=== PATIENT | male | born 1980 | race Caucasian/White ===

== ENCOUNTER 2016-09-03 20:07 | Observation (INO) | payer OTHER ==
[~2016-09-03] VITALS: Ht 182.9 cm; Wt 89.0 kg
[~2016-09-03 20:07] MED LIST: NALOXONE HCL 0.4 MG/1 ML VIAL/CARP IV PRN; SODIUM CHLORIDE 0.9% 1000ML 1,000 ML IV SCH
[2016-09-03 20:29] VITALS: BP 129/90; PULSE 83; TEMP 36.9; O2SAT 98; Ht 182.9 cm; Wt 89.0 kg
[2016-09-03] MEDS ORDERED: DEXAMETHASONE INJ 8 MG in SYRINGE 0 ML IV SCH (21:15)
[2016-09-03] MEDS ORDERED: IV FLUIDS COMPLETED PRN (21:15)
[2016-09-03 21:23] LABS: HEMATOCRIT 46.5 % (42-52); MEAN CELL VOLUME 84.9 fL (80-100); MEAN CORPUSCULAR HEMOGLOBIN 29.4 pg (25-34); MEAN CORPUSCULAR HGB CONC 34.6 g/dl (32-36); MEAN PLATELET VOLUME 10.3 fL (7.4-10.4); PLATELET COUNT 272 K/uL (130-400); RED BLOOD COUNT 5.48 M/uL (4.7-6.1); WHITE BLOOD COUNT 12.37 K/uL (4.8-10.8)
--- NOTE | 2016-09-03 21:23 | DIAGNOSTIC IMAGING REPORT ---
CHEST 2 VIEWS ROUTINE CLINICAL HISTORY: Preoperative chest COMPARISON STUDY: No previous studies for comparison. FINDINGS: The cardiac and mediastinal contours are normal. There is no evidence of focal pulmonary consolidation. There is no evidence of failure. No pleural effusions are visualized.[ IMPRESSION: No active disease in the chest. Electronically signed by: Genaro Farrell M.D. 09/03/2016 9:21 PM Dictated Date/Time: 09/03/2016 9:21 PM
[2016-09-03] MEDS: LACTATED RINGER'S 1000ML 1,000 ML IV SCH (21:39)
[2016-09-03 21:43] LABS: BUN/CREATININE RATIO 20.3 (10-20); CREATININE 1.1 mg/dl (0.60-1.40); POTASSIUM 3.6 mmol/L (3.5-5.1)
[2016-09-03 21:48] LABS: URINE APPEARANCE CLEAR (CLEAR); URINE BILIRUBIN NEG (NEG); URINE COLOR YELLOW; URINE NITRITE NEG (NEG); URINE SPECIFIC GRAVITY 1.025 (1.000-1.030); UROBILINOGEN NEG (NEG)
[2016-09-03 21:54] LABS: CALCIUM 8.8 mg/dl (8.5-10.1)
[2016-09-03 21:56] LABS: MANUAL MICROSCOPIC REQUIRED? NO; REVIEW REQ? NO
[2016-09-03] MEDS: MORPHINE SULFATE 1 MG/ML 50 ML PCA SYR IV PRN ×2 (22:02→22:55)
[2016-09-03 22:10] VITALS: BP 141/85; PULSE 70; TEMP 37.2; O2SAT 98
[2016-09-03] MEDS: PREGABALIN 75 MG CAP PO SCH (22:18)
[2016-09-03] MEDS ORDERED: GABA-112 PO (22:46)
[2016-09-03] MEDS ORDERED: OXYC-57 PO (22:47)
[2016-09-03 23:00] VITALS: BP 113/67; PULSE 67; TEMP 37.3; O2SAT 98
[2016-09-04] VITALS (9 sets, daily range): BP systolic 112–154; BP diastolic 66–85; PULSE 62–89; TEMP 36.4–37.2; O2SAT 97–100
[2016-09-04] MEDS ORDERED: CEFAZOLIN 2000 MG/60 ML D5W IV SCH (06:00)
[2016-09-04] MEDS ORDERED: PREGABALIN 75 MG CAP PO SCH (06:00)
[2016-09-04] MEDS ORDERED: LACTATED RINGER'S 1000ML 1,000 ML IV SCH (06:00)
[2016-09-04] MEDS ORDERED: DEXAMETHASONE INJ 8 MG in SYRINGE 0 ML IV SCH (06:00)
[2016-09-04] MEDS: MORPHINE SULFATE 1 MG/ML 50 ML PCA SYR IV PRN (07:03)
[2016-09-04] MEDS: LACTATED RINGER'S 1000ML 1,000 ML IV SCH (09:05)
[2016-09-04] MEDS: PREGABALIN 75 MG CAP PO SCH (09:07)
[2016-09-04] MEDS ORDERED: EpHEDrine SULFATE INJ 50 MG/ML AMP IV PRN (11:30)
[2016-09-04] MEDS ORDERED: ATROPINE SULFATE 0.1 MG/ML 5ML SYR IV PRN (11:30)
[2016-09-04] MEDS ORDERED: HYDROmorphone INJ 1 MG/ML SYR IV PRN (11:30)
[2016-09-04] MEDS ORDERED: ONDANSETRON INJ 2 MG/ML 2 ML VIAL IV PRN ×2 (11:30→14:00)
[2016-09-04] MEDS ORDERED: MIDAZOLAM HCL 1 MG/ML 2ML VIAL ONE (12:32)
[2016-09-04] MEDS ORDERED: FENTANYL CITRATE INJ 50 MCG/1 ML 2 ML VIAL ONE ×2 (12:32→13:37)
--- NOTE | 2016-09-04 12:45 | History and Physical ---
History & Physical Date Sep 04, 2016. Chief Complaint LBP and R LE pain History of Present Illness The patient is a 36 year old male with complaints of a severe RLE radiculopathy that radiates to the anterior thigh. He reports dysesthesias with associated paresthesias. He denies weakness. Symptoms began approximately 3 weeks ago and have worsened to the point that he had limited ambulation due to pain. 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 Oral steroids and pain medication provided inadequate relief so he was admitted for IV pain medication and surgery. He denies LLE pain or incontinence. His MRI as an outpatient demonstrated a large foraminal and far lateral HNP R sided L2-3. Past Medical/Surgical History ACL recon x2 shoulder surgery Additional History Hepatic Disease: No Endocrine Disorder: No Kidney Disease: No Hypertension: No Heart Disease: No Bleeding Tendencies: No Infectious Diseases: No Allergies Coded Allergies: Nut Tree (Verified Allergy, Severe, ANAPHYLAXIS WITH TREE NUTS, 09/04/16) Home Medications Scheduled Gabapentin (Neurontin), 300 MG PO TID Scheduled PRN Oxycodone/Acetaminophen 5MG/325MG (Percocet 5MG/325MG), 1 TABLET PO Q6H PRN for Pain Physical Examination Skin: warm/dry, no rash Eyes: normal inspection, sclerae normal ENT: normal ENT inspection Head: normocephalic, atraumatic Neck: supple, no adenopathy, trachea midline Respiratory/Chest: lungs clear, normal breath sounds, no respiratory distress Cardiovascular: regular rate, rhythm Back: normal inspection Extremities: normal inspection, normal range of motion Neurologic/Psych: no motor/sensory deficits, alert, normal reflexes, oriented x 3 Diagnosis R L2-3 far lateral HNP with severe radiculopathy Plan of Treatment He was 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
[2016-09-04] MEDS ORDERED: HEPARIN SOD (PORCINE) 1000 UNIT/ML 10 ML VIAL ONE (12:53)
[2016-09-04] MEDS ORDERED: THROMBIN 5000 UNITS KIT ONE (12:53)
[2016-09-04] MEDS ORDERED: THROMBIN FOR SOLN 20000 UNIT KIT ONE (12:53)
[2016-09-04] MEDS ORDERED: BACITRACIN 50000 UNIT VIAL ONE (12:53)
[2016-09-04] MEDS ORDERED: BUPIVACAINE/EPINEPHRINE 0.25% 1:200,000 30 ML VIAL ONE (12:53)
[2016-09-04] MEDS ORDERED: HYDROmorphone INJ 2 MG/ML SYR/VIAL ONE (13:37)
[2016-09-04] MEDS ORDERED: FLOSEAL HEMOSTATIC MATRIX 5ML TOP ONE (13:51)
[2016-09-04] MEDS ORDERED: KETOROLAC TROMETHAMINE 30 MG/ML VIAL ONE (13:52)
[2016-09-04] MEDS ORDERED: ROCURONIUM BROMIDE 10 MG/ML 5 ML VIAL ONE (13:52)
[2016-09-04] MEDS ORDERED: GLYCOPYRROLATE INJ 0.2 MG/ML VIAL ONE (13:52)
[2016-09-04] MEDS ORDERED: DEXAMETHASONE SOD INJ 4 MG/ML VIAL ONE (13:52)
[2016-09-04] MEDS ORDERED: NEOSTIGMINE METHYLSULFATE 1 MG/ML 10ML VIAL ONE (13:52)
[2016-09-04] MEDS ORDERED: PROPOFOL IV EMULSION 10 MG/ML 20 ML VIAL IV ONE (13:52)
[2016-09-04] MEDS ORDERED: ONDANSETRON INJ 2 MG/ML 2 ML VIAL ONE (13:52)
[2016-09-04] MEDS ORDERED: LIDOCAINE HCL 2% 2 ML VIAL (20MG/ML) ONE (13:52)
[2016-09-04] MEDS ORDERED: SODIUM CHLORIDE 0.9% 1000ML 1,000 ML IV SCH (13:58)
--- NOTE | 2016-09-04 13:58 | [facility] Post Operative Brief Note ---
Immediate Operative Summary Operative Date Sep 04, 2016. Pre-Operative Diagnosis Right L2-L3 far lateral HNP with severe radiculopathy Post-Operative Diagnosis same Procedure(s) Performed Right L2-L3 Far Lateral Discectomy Surgeon Dr. Ru Bianchi Machine Stripper Cutter Surgeon(s) Bakari Huntley PA-C Estimated Blood Loss 50 ml Findings dict Specimens none per surgeon
[2016-09-04] MEDS ORDERED: MoRPHine SULFATE 2 MG/ML CARP IV PRN (14:00)
[2016-09-04] MEDS ORDERED: OXYCODONE/ACETAMINOPHEN 5-325 TAB PO PRN ×2 (14:00)
--- NOTE | 2016-09-04 14:00 | Discharge Instructions ---
Discharge Instructions Date of Service Sep 04, 2016. Admission Reason for Admission: Herniated Nucleus Pulposus Discharge Discharge Diagnosis / Problem: same Discharge Goals Goal(s): Decrease discomfort Activity Recommendations Activity Limitations: per Instructions/Follow-up section Lifting Limitations: no more than 10 pounds Exercise/Sports Limitations: gradually increase as tolerated May Resume Sexual Activity: when tolerated Shower/Bathe: may shower/bathe in 3 days . Instructions / Follow-Up Instructions / Follow-Up ACTIVITY RECOMMENDATIONS: SELF CARE INSTRUCTIONS AFTER A LAMINECTOMY 1. No prolonged sitting (less than 30 minutes for the first 3 weeks after surgery). 2. No bending, lifting more than 5 pounds, or twisting (roll like a log when turning in bed). 3. You may shower 3 days after surgery if no drainage from wound. Thoroughly dry wound. Do not soak in the tub. 4. Please walk as much as you can for exercise. Gradually increase the distance that you walk as your endurance increases. 5. You may drive in 7-10 days if you are comfortable and no longer requiring pain medications. SPECIAL CARE INSTRUCTIONS: VERY IMPORTANT TO READ AND REVIEW A. Your surgical incision has been closed with a cosmetic suture under the skin that will dissolve in about 6 weeks. In 14 days, you can use a pair of clean scissors and cut the suture that is left outside of the skin at the ends of your incision. B. Complications are uncommon, but please contact us if you have any signs or symptoms of: 1. wound infection (fever higher than 102.5 degrees F, redness, separation of wound, drainage, or increasing pain from the incision) 2. blood clots in legs (pain, swelling, redness and warmth in legs) 3. urinary tract infection (fever higher than 102.5 degrees, burning upon urination or increased frequency of urination) 4. nerve problems (inability to walk on your toes or heels, numbness, loss of bowel or bladder control) 5. any other symptoms that concern you. C. Please call the office at if you have any concerns or questions about your operation or recovery. MANAGING PAIN AFTER SPINAL SURGERY 1. Narcotic medication is intended for short-term use and will be provided for surgical pain. Surgical pain usually lasts for a period of 4-6 weeks. Narcotic medication includes Percocet, Vicodin, Darvocet, Tylenol #3 or Lortab. 2. Longer-term pain is more appropriately treated with non-narcotic medication such as Tylenol ES. 3. Muscle spasm is not appropriately treated with narcotics. Muscle relaxers such as Soma, Flexeril or Skelaxin can be used along with Tylenol ES. 4. Remember that we all live with some "aches and pains". This is not unusual or uncommon after an injury or as we get older. 5. We will provide appropriate medication within the normal guidelines of their prescribed use. We will also be very cautious and aware of potential abuse and extended duration of patients' medication needs. 6. Please allow 2-3 days to process refills. Prescriptions will not be mailed but must be picked up at the office. FOLLOW UP VISIT: Keep your scheduled follow-up appointment. Any questions, please call the office at . Current Hospital Diet Patient's current hospital diet: Discharge Diet Recommended Diet: Regular Diet Procedures Procedures Performed: Right L2-L3 Far Lateral Discectomy Pending Studies Studies pending at discharge: no Medical Emergencies . Who to Call and When: Medical Emergencies: If at any time you feel your situation is an emergency, please call 911 immediately. . Non-Emergent Contact Non-Emergency issues call your: Surgeon . "Provider Documentation" section prepared by Ru Bianchi. . VTE Core Measure Inpt VTE Proph given/why not?: SCD's [place] Drug Monitoring Program Search Results: patient reviewed within database, no issues identified
[2016-09-04] MEDS ORDERED: ESMOLOL HCL 10 MG/ML 10 ML VIAL ONE (14:03)
--- NOTE | 2016-09-04 14:03 | DIAGNOSTIC IMAGING REPORT ---
LUMBAR SPINE, INTRAOPERATIVE FLUOROSCOPY HISTORY: L2-L3 discectomy. FLUOROSCOPY TIME: 13 seconds. FINDINGS: Intraoperative fluoroscopy was provided for the lumbar spine. A single fluoroscopic spot image of the lumbar spine demonstrates a surgical instrument posterior to the L3 vertebral body. IMPRESSION: Fluoroscopy provided for a L2-L3 discectomy. Electronically signed by: Heath Evans M.D. 09/04/2016 2:02 PM Dictated Date/Time: 09/04/2016 2:01 PM
[2016-09-04] MEDS: FENTANYL CITRATE INJ 50 MCG/1 ML 2 ML VIAL IV PRN ×2 (14:56→15:01)
--- NOTE | 2016-09-04 15:13 | Anesthesiology Progress Note ---
Anesthesia Post Op Note Date & Time Sep 04, 2016 at 15:13 Vital Signs Pain Intensity: 0 Vital Signs Past 12 Hours Date Time Temp Pulse Resp B/P (MAP) Pulse Ox O2 Delivery O2 Flow Rate FiO2 09/04/16 14:50 170/92 09/04/16 14:49 161/95 09/04/16 14:48 69 14 09/04/16 14:48 68 14 100 09/04/16 14:46 172/90 09/04/16 14:43 63 11 09/04/16 14:43 62 11 100 09/04/16 14:41 158/93 09/04/16 14:40 37.4 79 20 100 Mask 10 09/04/16 14:38 66 12 09/04/16 14:38 67 12 100 09/04/16 14:36 164/92 09/04/16 14:33 59 15 09/04/16 14:33 60 15 100 09/04/16 14:32 152/87 09/04/16 14:28 67 18 99 09/04/16 14:28 67 18 09/04/16 14:26 166/84 09/04/16 14:23 60 10 100 09/04/16 14:23 60 10 09/04/16 14:22 64 15 09/04/16 14:22 64 15 100 09/04/16 14:21 173/96 09/04/16 14:19 159/91 09/04/16 14:17 63 14 09/04/16 14:17 63 14 100 09/04/16 14:12 67 16 09/04/16 14:12 67 16 100 09/04/16 14:11 148/92 09/04/16 14:07 36.8 79 14 150/93 95 Mask 10 09/04/16 14:07 86 150/93 98 09/04/16 14:07 86 09/04/16 11:45 36.8 72 20 130/78 (95) 100 Room Air 09/04/16 08:00 Room Air 09/04/16 07:51 97 Room Air 09/04/16 07:50 36.7 62 16 128/78 (95) 97 Room Air 09/04/16 03:30 36.8 64 14 112/69 (83) 98 Room Air Notes Mental Status: alert / awake / arousable, participated in evaluation Pt Amnestic to Procedure: Yes Nausea / Vomiting: adequately controlled Pain: adequately controlled Airway Patency, RR, SpO2: stable & adequate BP & HR: stable & adequate Hydration State: stable & adequate Anesthetic Complications: no major complications apparent
--- NOTE | 2016-09-05 22:40 | OPERATIVE REPORT ---
DATE OF OPERATION: 09/04/2016 PREOPERATIVE DIAGNOSES: Right L2-L3 far lateral herniated nucleus pulposus. POSTOPERATIVE DIAGNOSIS: Same. PROCEDURES: Right L2-L3 microdiscectomy for far lateral exposure. SURGEON: Dr. Bianchi. LEATHER TOGGLER: Rolando Huntley PA-C. Please note he participated in all portions of the procedure and was critical for performance of the procedure and participated with positioning, prepping, draping, retraction and wound closure. ANESTHESIA: General endotracheal anesthesia. COMPLICATIONS: None. ESTIMATED BLOOD LOSS: Minimal. DESCRIPTION OF PROCEDURE: After identification of patient and operative level, he was brought to the OR where he underwent induction of general anesthesia. He was then positioned prone on [facility] OR table. All bony prominences were well padded. Care was taken to avoid pressure on the periorbital area. Lumbosacral area was sterilely prepped and draped in usual fashion. Antibiotics were administered. Time-out was performed. Level was confirmed and skin incision was localized with fluoroscopy and skin was infiltrated with Marcaine. I then made an incision at L2-L3 level, one-half fingerbreadth to the right side of the midline, incised the fascia and used blunt dissection to develop a plane down to the transverse process of L2 and L3 on the right side. I then passed trocars down to allow introduction of a tubular retractor system from [employer] called [employer]. I inserted a radiolucent tube and then exposed the lateral transverse process of L2-L3. I then confirmed level with fluoroscopy with a marker on the transverse processes of L3. I then released the intertransverse ligament with a curette, then identified the large extruded disc fragment that was filling the extraforaminal space as well as the foramen. I removed 1 large disc fragment and was able to slip the probe through the foramen and up to the pedicle of L2 with no further resistance. I explored the annular tear and no further free fragments were noted. I then confirmed nerve roots decompressed. I irrigated with bacitracin solution, applied FloSeal and used bipolar cautery for hemostasis. I then closed in layered fashion. All sponge and needle counts were correct at the end of the case. I attest to the content of the Intraoperative Record and any orders documented therein. Any exception s are noted below.
--- NOTE | 2016-09-22 16:57 | Discharge Summary ---
Orthopedic Discharge Summary Admission Date/Reason Sep 03, 2016 at 20:07 Herniated Nucleus Pulposus. Discharge Date/Disposition Sep 04, 2016 Home Diagnosis Principal Diagnosis: same Procedure(s) Performed Lumbar microdiscectomy Medication Reconciliation Continued Medications: Gabapentin (Neurontin) 100 Mg Cap 300 MG PO TID, CAP Oxycodone/Acetaminophen 5MG/325MG (Percocet 5MG/325MG) Tab 1 TABLET PO Q6H PRN for Pain, TAB PAIN Admission Physical Exam As per Admitting History & Physical. Hospital Course He was admitted for pain control for a HNP that was poorly managed as an outpatient. the day after admission he had an uneventful lumbar discectomy from a far lateral approach. He tolerated this without complication and was discharged in stable condition with resolution of pain. Discharge Instructions Please refer to the electronic Patient Visit Report (Discharge Instructions) for additional information.
== END 2016-09-04 20:25 | disposition home or self-care (01) ==
LOC: C.MSN 20:07 → UNDOADMOB 20:07 → C.MSN 20:54 → EDSTATUS 09-04 09:59 → PREINTOOBSV 09-04 10:18 → UNDODISOB 09-04 20:25
PROVIDERS: ADMIT Orthopaedic Surgery Orthopaedic Surgery of the Spine; ATTEND Orthopaedic Surgery Orthopaedic Surgery of the Spine
DX: M51.16 Intervertebral disc disorders with radiculopathy, lumbar region (principal)